=== PATIENT | male | born 1945 | race Caucasian/White ===

== ENCOUNTER 2023-05-10 09:09 | Inpatient (IN) | payer MEDICARE, OTHER ==
[~2023-05-10] VITALS: Ht 185.4 cm; Wt 100.2 kg
[~2023-05-10 09:09] MED LIST: ATOR40TA PO; HCTZ25T PO; METF500T PO
[2023-05-10] MEDS ORDERED: acetaminophen 325mg tablet PO STA (13:17)
[2023-05-10] MEDS ORDERED: piperacillin/tazo 3.375gm/50ml 50 ML IV ONE (13:20)
[2023-05-10] MEDS ORDERED: vancomycin/NS 1 GM ADD-VANTAGE 250 ML IV ONE (13:20)
[2023-05-10] MEDS ORDERED: normal saline 1000ml 1,000 ML IV SCH (13:25)
[2023-05-10 14:19] LABS: ALANINE AMINOTRANSFERASE 31 U/L (12-78); ALBUMIN 3.9 G/DL (3.4-5.0); ALKALINE PHOSPHATASE 81 IU/L (46-116); ANION GAP 9 (8-16); ASPARTATE AMINO TRANSFERASE 18 U/L (10-37); BILIRUBIN,TOTAL 0.4 MG/DL (0.1-1.0); BLOOD UREA NITROGEN 24 MG/DL (7-18); BUN/CREATININE RATIO 21.2 (10.0-20.0); C-REACTIVE PROTEIN 0.06 MG/DL (0.0-0.5); CALCIUM 9.7 MG/DL (8.5-10.1); CHLORIDE 101 MMOL/L (99-107); CREATININE 1.13 MG/DL (0.60-1.10); GLUCOSE 112 MG/DL (70-104); MAGNESIUM 2.1 MG/DL (1.5-2.4); POTASSIUM 4.2 MMOL/L (3.5-5.1); SODIUM 137 MMOL/L (135-145); TOTAL CARBON DIOXIDE 26.7 MMOL/L (24-32); TOTAL PROTEIN 7.7 G/DL (6.4-8.2); eCRCL 63 ML/MIN; eGFR 63 ML/MIN
[2023-05-10 14:23] LABS: BASOPHILS # (AUTO) 0.1 X10'3 (0-0.2); BASOPHILS % (AUTO) 0.9 % (0-1); EOSINOPHILS # (AUTO) 0.4 X10'3 (0-0.9); EOSINOPHILS % (AUTO) 6.6 % (0-6); HEMATOCRIT 44.3 % (42.0-52.0); HEMOGLOBIN 14.6 g/dl (14.0-17.9); LYMPHOCYTES # (AUTO) 1.1 X10'3 (1.1-4.8); LYMPHOCYTES % (AUTO) 19.4 % (21-51); MEAN CORPUSCULAR HEMOGLOBIN 34.3 PG (27.0-31.0); MEAN CORPUSCULAR VOLUME 103.9 FL (78-98); MONOCYTES # (AUTO) 0.7 X10'3 (0-0.9); MONOCYTES % (AUTO) 12.1 % (2-12); NEUTROPHILS # (AUTO) 3.5 X10'3 (1.8-7.7); PLATELET COUNT 154 X10'3 (140-440); RED BLOOD COUNT 4.27 X10'6 (4.70-6.10); RED CELL DISTRIBUTION WIDTH 13.3 % (11.5-14.5); WHITE BLOOD COUNT 5.7 X10'3 (4.5-11.0)
[2023-05-10] MEDS ORDERED: ATOR40TA72 PO (15:18)
[2023-05-10] MEDS ORDERED: AMLO-140 PO (15:18)
[2023-05-10] MEDS ORDERED: METF-438 PO (15:18)
[2023-05-10] MEDS ORDERED: COLE625T13 PO (15:27)
[2023-05-10] MEDS ORDERED: CHOL100046 PO (15:27)
[2023-05-10] MEDS ORDERED: CYAN1TAB65 PEG (15:27)
[2023-05-10] MEDS ORDERED: ASPI81TA52 PO (15:27)
[2023-05-10] MEDS ORDERED: magnesium Cl slow-release 64mg tablet PO PRN (16:10)
[2023-05-10] MEDS ORDERED: dextrose 50%-water 50ml dispensing syringe IV PRN ×2 (16:10)
[2023-05-10] MEDS ORDERED: potassium Cl 20 mEq SR tablet PO PRN ×2 (16:10)
[2023-05-10] MEDS ORDERED: diphenhydrAMINE 25mg capsule PO PRN (16:10)
[2023-05-10] MEDS ORDERED: magnesium 4gm in 100ml NS 100 ML IV PRN (16:10)
[2023-05-10] MEDS ORDERED: magnesium hydroxide 30ml (MOM) UD suspension PO PRN (16:10)
[2023-05-10] MEDS ORDERED: MESSAGE TO PHARMACY PO ONE (16:10)
[2023-05-10] MEDS ORDERED: HYDROcodone/acetaminophen 10/325mg tab PO PRN (16:10)
[2023-05-10] MEDS ORDERED: acetaminophen 650mg rectal suppository RC PRN (16:10)
[2023-05-10] MEDS ORDERED: acetaminophen 325mg tablet PO PRN (16:10)
[2023-05-10] MEDS ORDERED: HYDROcodone/acetaminophen 5mg/325mg tablet PO PRN (16:10)
[2023-05-10] MEDS ORDERED: ondansetron/PF 4mg/2ml inj IV PRN (16:10)
[2023-05-10] MEDS ORDERED: potassium Cl 40MEQ/1/2NS 520ml 520 ML IV PRN (16:10)
[2023-05-10] MEDS ORDERED: bisacodyl 10mg suppository rectal RC PRN (16:10)
[2023-05-10] MEDS ORDERED: DEXTROSE 15 GM of carb/4 tabs (each vial/BOTTLE has 4 tablets) PO PRN ×2 (16:10)
[2023-05-10] MEDS ORDERED: morphine 2 MG/ML inj. syringe IV PRN ×2 (16:10)
[2023-05-10] MEDS ORDERED: magnesium 2GM in 50ml NS 50 ML IV PRN (16:10)
[2023-05-10] MEDS ORDERED: insulin Lispro (HumaLOG) vial - multi-dose SQ SCH (16:10)
[2023-05-10] MEDS ORDERED: glucagon, human recombinant 1mg kit SUBCUT PRN (16:10)
[2023-05-10] MEDS ORDERED: mag hydrox/Alum hydrox/simeth 30ml oral suspension PO PRN (16:10)
[2023-05-10 16:26] LABS: BILIRUBIN,URINE NEGATIVE (Neg); CLARITY,URINE CLEAR (Clear); COLOR,URINE YELLOW (Yellow); GLUCOSE, URINE NEGATIVE (Neg); KETONES,URINE NEGATIVE (Neg); LEUKOCYTE ESTERASE ,URINE NEGATIVE (Neg); NITRITES, URINE NEGATIVE (Neg); OCCULT BLOOD,URINE NEGATIVE (Neg); PROTEIN,URINE NEGATIVE (Neg); UROBILINOGEN,URINE 0.2 E.U/dL (0.2-1.0)
[2023-05-10 16:30] LABS: UA COLLECTION TYPE VOIDED
[2023-05-10 17:13] LABS: HEMOGLOBIN A1C 6.3 % (4.5-6.2)
[2023-05-10] MEDS: normal saline 1000ml 1,000 ML IV SCH (18:00)
[2023-05-10 18:57] LABS: BASOPHILS % (AUTO) 0.8 % (0-1); EOSINOPHILS # (AUTO) 0.3 X10'3 (0-0.9); EOSINOPHILS % (AUTO) 6.6 % (0-6); HEMATOCRIT 38.9 % (42.0-52.0); HEMOGLOBIN 13.1 g/dl (14.0-17.9); LYMPHOCYTES % (AUTO) 20.9 % (21-51); MEAN CORPUSCULAR HEMOGLOBIN 34.6 PG (27.0-31.0); MEAN CORPUSCULAR HGB CONC 33.7 g/dL (33.0-36.5); MEAN CORPUSCULAR VOLUME 102.6 FL (78-98); MEAN PLATELET VOLUME 8.2 FL (7.4-10.4); MONOCYTES # (AUTO) 0.4 X10'3 (0-0.9); MONOCYTES % (AUTO) 9.6 % (2-12); NEUTROPHILS # (AUTO) 2.8 X10'3 (1.8-7.7); NEUTROPHILS % (AUTO) 62.1 % (42-75); PLATELET COUNT 138 X10'3 (140-440); RED BLOOD COUNT 3.79 X10'6 (4.70-6.10); WHITE BLOOD COUNT 4.6 X10'3 (4.5-11.0)
[2023-05-10 19:00] VITALS: BP 152/88; PULSE 78; RESP 16; TEMP 96.7; O2SAT 98
--- NOTE | 2023-05-10 19:07 | NUR ---
Patient in room ED 1. I have received report from NIK Ramos and had the opportunity to ask questions and assume patient care.
[2023-05-10 19:12] LABS: ALANINE AMINOTRANSFERASE 30 U/L (12-78); ALBUMIN 3.4 G/DL (3.4-5.0); ALKALINE PHOSPHATASE 70 IU/L (46-116); ANION GAP 9 (8-16); ASPARTATE AMINO TRANSFERASE 16 U/L (10-37); BILIRUBIN,TOTAL 0.5 MG/DL (0.1-1.0); BLOOD UREA NITROGEN 23 MG/DL (7-18); BUN/CREATININE RATIO 20.4 (10.0-20.0); CHLORIDE 103 MMOL/L (99-107); CREATININE 1.13 MG/DL (0.60-1.10); GLUCOSE 113 MG/DL (70-104); LIPASE 180 U/L (73-393); SODIUM 140 MMOL/L (135-145); TOTAL CARBON DIOXIDE 27.6 MMOL/L (24-32); TOTAL PROTEIN 6.7 G/DL (6.4-8.2); eCRCL 63 ML/MIN; eGFR 63 ML/MIN
[2023-05-10] MEDS: K and/or MAG REPLACEMENT MC SCH (19:40)
[2023-05-10] MEDS: docusate sod 100mg capsule PO SCH (19:47)
[2023-05-10] MEDS: lactobacillus rhamnosus 10,000 MMU CELLS/CAPSULE PO SCH (19:51)
[2023-05-10] MEDS: heparin, porcine 5000 units/ml vial SQ SCH (19:52)
[2023-05-10 20:00] VITALS: RESP 13; O2SAT 98
[2023-05-10] MEDS: colesevelam 625mg tablet PO SCH (20:51)
[2023-05-10] MEDS: insulin glargine (Lantus) pen - multi-dose SQ SCH (21:00)
[2023-05-10 22:00] VITALS: BP 126/66; PULSE 71; RESP 13; TEMP 97.9; O2SAT 98
[2023-05-10] MEDS: piperacillin/tazo 3.375gm/50ml 50 ML IV SCH (23:57)
[2023-05-11] MEDS: normal saline 1000ml 1,000 ML IV SCH ×3 (03:35→22:10)
[2023-05-11] MEDS: vancomycin/NS 1 GM ADD-VANTAGE 250 ML IV SCH ×2 (03:35→16:19)
--- NOTE | 2023-05-11 06:05 | NUR ---
Problems reprioritized. Patient report given, questions answered & plan of care reviewed with NIK Archer.
[2023-05-11 06:34] VITALS: BP 134/65; PULSE 71; RESP 14; TEMP 98.3; O2SAT 98
[2023-05-11] MEDS: lactobacillus rhamnosus 10,000 MMU CELLS/CAPSULE PO SCH ×2 (07:42→19:51)
[2023-05-11] MEDS: colesevelam 625mg tablet PO SCH ×2 (07:42→19:51)
[2023-05-11] MEDS: docusate sod 100mg capsule PO SCH ×2 (07:42→19:49)
[2023-05-11] MEDS: atorvastatin 20mg tablet PO SCH (07:43)
[2023-05-11] MEDS: amLODIPine 5mg tablet PO SCH (07:43)
[2023-05-11] MEDS: lisinopril 20mg tablet PO SCH (07:43)
[2023-05-11] MEDS: heparin, porcine 5000 units/ml vial SQ SCH ×2 (07:44→19:51)
[2023-05-11 08:00] VITALS: RESP 18; O2SAT 98
[2023-05-11] MEDS ORDERED: COBAMAMIDE PEG SCH (08:00)
[2023-05-11] MEDS ORDERED: CYANOCOBALAMIN PEG SCH (08:00)
[2023-05-11] MEDS: K and/or MAG REPLACEMENT MC SCH ×2 (08:00→19:46)
[2023-05-11 08:12] LABS: BASOPHILS % (AUTO) 0.6 % (0-1); EOSINOPHILS # (AUTO) 0.3 X10'3 (0-0.9); EOSINOPHILS % (AUTO) 5.9 % (0-6); HEMOGLOBIN 12.3 g/dl (14.0-17.9); LYMPHOCYTES # (AUTO) 0.7 X10'3 (1.1-4.8); LYMPHOCYTES % (AUTO) 15.1 % (21-51); MEAN CORPUSCULAR HEMOGLOBIN 34.6 PG (27.0-31.0); MEAN CORPUSCULAR HGB CONC 34.1 g/dL (33.0-36.5); MEAN CORPUSCULAR VOLUME 101.6 FL (78-98); MEAN PLATELET VOLUME 8.4 FL (7.4-10.4); MONOCYTES # (AUTO) 0.4 X10'3 (0-0.9); MONOCYTES % (AUTO) 8.8 % (2-12); NEUTROPHILS % (AUTO) 69.6 % (42-75); PLATELET COUNT 133 X10'3 (140-440); RED BLOOD COUNT 3.55 X10'6 (4.70-6.10); RED CELL DISTRIBUTION WIDTH 13.2 % (11.5-14.5); WHITE BLOOD COUNT 4.3 X10'3 (4.5-11.0)
[2023-05-11] MEDS: piperacillin/tazo 3.375gm/50ml 50 ML IV SCH ×3 (08:16→23:54)
[2023-05-11 08:38] LABS: ALANINE AMINOTRANSFERASE 24 U/L (12-78); ALBUMIN 2.9 G/DL (3.4-5.0); ALKALINE PHOSPHATASE 60 IU/L (46-116); ANION GAP 7 (8-16); ASPARTATE AMINO TRANSFERASE 15 U/L (10-37); BILIRUBIN,TOTAL 0.4 MG/DL (0.1-1.0); BLOOD UREA NITROGEN 24 MG/DL (7-18); BUN/CREATININE RATIO 20.3 (10.0-20.0); CALCIUM 8.4 MG/DL (8.5-10.1); CHLORIDE 106 MMOL/L (99-107); CHOL/HDL RATIO 3.3 (0.00-4.99); CHOLESTEROL 113 MG/DL (0-200); CREATININE 1.18 MG/DL (0.60-1.10); GLUCOSE 129 MG/DL (70-104); HDL CHOLESTEROL 34 MG/DL (35-60); LDL CHOLESTEROL 46 MG/DL (50-100); MAGNESIUM 1.8 MG/DL (1.5-2.4); PHOSPHORUS 2.9 MG/DL (2.3-4.5); POTASSIUM 4.1 MMOL/L (3.5-5.1); SODIUM 140 MMOL/L (135-145); TOTAL CARBON DIOXIDE 26.6 MMOL/L (24-32); TOTAL PROTEIN 5.9 G/DL (6.4-8.2); TRIGLYCERIDES 242 MG/DL (20-135); eCRCL 60 ML/MIN; eGFR 60 ML/MIN
[2023-05-11 10:17] VITALS: BP 134/61; PULSE 76; RESP 16; TEMP 97.1; O2SAT 96
[2023-05-11] MEDS ORDERED: GADOTERATE MEGLUMINE 7.5 MMOL/15 ML VIAL IV ONE (12:44)
--- NOTE | 2023-05-11 15:01 | NUR ---
Diabetes consult: Pt admit for sepsis, cellulitis, osteomyelitis and presents with an A1c of 6.3% per EMR. Due to A1c <7% and good glucose control, diabetic nutrition education is not warranted at this time. Pt is currently on a carbohydrate controlled diet with PO intake 100%x2 meal which met 88% of estimated kcal needs and 77% of estimated protein need. Pt seen at bedside ,states he does not want double protein at this time and states his current meal is filling. Recommend liberalizing to regular diet given A1c of 6.3%; discussed with RN. SUERO on 05/10 receiving routine bowel care per EMR. Will continue to monitor. Recommendation: 1.liberalize to regular diet given A1c of 6.3% and good blood glucose control 2.encourage double protein portion to better meet estimated protein needs 3.routine bowel care 4.weekly scaled wt Addendum: 05/11/23 at [address] Amended: Links added.
[2023-05-11 18:00] VITALS: BP 147/69; PULSE 75; RESP 16; TEMP 98.7; O2SAT 98
--- NOTE | 2023-05-11 18:35 | NUR ---
Patient in room [facility]TH[facility] 4017. I have received report from NIK Archer and had the opportunity to ask questions and assume patient care.
[2023-05-11 20:00] VITALS: RESP 16; O2SAT 99
[2023-05-11] MEDS: insulin glargine (Lantus) pen - multi-dose SQ SCH (21:00)
[2023-05-11 22:00] VITALS: BP 149/64; PULSE 77; RESP 16; TEMP 98.7; O2SAT 99
[2023-05-12] MEDS: normal saline 1000ml 1,000 ML IV SCH ×2 (02:56→14:29)
[2023-05-12] MEDS ORDERED: VANCOMYCIN LEVEL IV ONE (03:30)
[2023-05-12] MEDS: vancomycin/NS 1 GM ADD-VANTAGE 250 ML IV SCH (03:52)
[2023-05-12 04:00] LABS: BASOPHILS % (AUTO) 0.8 % (0-1); EOSINOPHILS # (AUTO) 0.3 X10'3 (0-0.9); EOSINOPHILS % (AUTO) 5.8 % (0-6); HEMATOCRIT 35.7 % (42.0-52.0); LYMPHOCYTES # (AUTO) 0.9 X10'3 (1.1-4.8); MEAN CORPUSCULAR HEMOGLOBIN 34.2 PG (27.0-31.0); MEAN CORPUSCULAR HGB CONC 33.7 g/dL (33.0-36.5); MEAN CORPUSCULAR VOLUME 101.6 FL (78-98); MEAN PLATELET VOLUME 8.1 FL (7.4-10.4); MONOCYTES # (AUTO) 0.6 X10'3 (0-0.9); MONOCYTES % (AUTO) 11.7 % (2-12); NEUTROPHILS # (AUTO) 3.5 X10'3 (1.8-7.7); NEUTROPHILS % (AUTO) 65.7 % (42-75); PLATELET COUNT 127 X10'3 (140-440); RED BLOOD COUNT 3.51 X10'6 (4.70-6.10); RED CELL DISTRIBUTION WIDTH 13.1 % (11.5-14.5); WHITE BLOOD COUNT 5.4 X10'3 (4.5-11.0)
[2023-05-12] MEDS: acetaminophen 325mg tablet PO PRN ×2 (04:02→09:32)
[2023-05-12 04:35] LABS: ALANINE AMINOTRANSFERASE 24 U/L (12-78); ALBUMIN 2.9 G/DL (3.4-5.0); ALBUMIN/GLOBULIN RATIO 0.9 (1.1-1.5); ALKALINE PHOSPHATASE 54 IU/L (46-116); ANION GAP 9 (8-16); ASPARTATE AMINO TRANSFERASE 11 U/L (10-37); BILIRUBIN,TOTAL 0.3 MG/DL (0.1-1.0); CALCIUM 8.7 MG/DL (8.5-10.1); CHLORIDE 109 MMOL/L (99-107); CREATININE 1.24 MG/DL (0.60-1.10); GLUCOSE 149 MG/DL (70-104); PHOSPHORUS 2.9 MG/DL (2.3-4.5); POTASSIUM 4.3 MMOL/L (3.5-5.1); SODIUM 141 MMOL/L (135-145); TOTAL CARBON DIOXIDE 23.5 MMOL/L (24-32); VANCOMYCIN,TROUGH 12.7 UG/ML (6.0-14.0); eCRCL 57 ML/MIN; eGFR 57 ML/MIN
[2023-05-12 05:00] LABS: BLOOD UREA NITROGEN 25 MG/DL (7-18); BUN/CREATININE RATIO 20.2 (10.0-20.0)
--- NOTE | 2023-05-12 06:34 | NUR ---
Problems reprioritized. Patient report given, questions answered & plan of care reviewed with NIK Fernandez.
--- NOTE | 2023-05-12 06:35 | NUR ---
Problems reprioritized. Patient report given, questions answered & plan of care reviewed with [].
--- NOTE | 2023-05-12 06:36 | NUR ---
Patient in room [facility] 4017. I have received report from Madison ZARAGOZA and had the opportunity to ask questions and assume patient care.
[2023-05-12 06:47] VITALS: BP 116/63; PULSE 74; RESP 16; TEMP 98.1; O2SAT 99
[2023-05-12 08:00] VITALS: RESP 16
[2023-05-12] MEDS: K and/or MAG REPLACEMENT MC SCH ×2 (08:00→20:00)
[2023-05-12] MEDS: docusate sod 100mg capsule PO SCH ×2 (08:00→20:00)
[2023-05-12] MEDS: atorvastatin 20mg tablet PO SCH (08:00)
[2023-05-12] MEDS: colesevelam 625mg tablet PO SCH ×2 (08:01→20:21)
[2023-05-12] MEDS: lactobacillus rhamnosus 10,000 MMU CELLS/CAPSULE PO SCH ×2 (08:01→20:21)
[2023-05-12] MEDS: amLODIPine 5mg tablet PO SCH (08:03)
[2023-05-12] MEDS: piperacillin/tazo 3.375gm/50ml 50 ML IV SCH ×2 (08:03→17:19)
[2023-05-12] MEDS: lisinopril 20mg tablet PO SCH (08:03)
[2023-05-12] MEDS: heparin, porcine 5000 units/ml vial SQ SCH ×2 (08:08→20:21)
[2023-05-12 10:11] VITALS: BP 145/64; PULSE 69; RESP 16; TEMP 98.1; O2SAT 98
[2023-05-12] MEDS: VANCOmycin 1250MG/NS 250ml Bag 250 ML IV SCH (15:05)
[2023-05-12 18:00] VITALS: BP 151/65; PULSE 72; RESP 16; TEMP 98.7; O2SAT 98
--- NOTE | 2023-05-12 18:26 | NUR ---
Problems reprioritized. Patient report given, questions answered & plan of care reviewed with Colette ZARAGOZA.
[2023-05-12 20:00] VITALS: RESP 16; O2SAT 98
[2023-05-12] MEDS: insulin glargine (Lantus) pen - multi-dose SQ SCH (21:00)
[2023-05-12 22:00] VITALS: BP 145/67; PULSE 69; RESP 16; TEMP 98.4; O2SAT 98
[2023-05-13] MEDS: piperacillin/tazo 3.375gm/50ml 50 ML IV SCH ×3 (00:13→17:20)
[2023-05-13] MEDS: VANCOmycin 1250MG/NS 250ml Bag 250 ML IV SCH ×2 (04:23→16:09)
[2023-05-13] MEDS: normal saline 1000ml 1,000 ML IV SCH ×2 (04:28→14:10)
[2023-05-13 06:07] LABS: ALANINE AMINOTRANSFERASE 22 U/L (12-78); ALBUMIN 2.8 G/DL (3.4-5.0); ALBUMIN/GLOBULIN RATIO 0.9 (1.1-1.5); ALKALINE PHOSPHATASE 51 IU/L (46-116); ANION GAP 6 (8-16); ASPARTATE AMINO TRANSFERASE 13 U/L (10-37); BILIRUBIN,TOTAL 0.3 MG/DL (0.1-1.0); BLOOD UREA NITROGEN 24 MG/DL (7-18); BUN/CREATININE RATIO 18.8 (10.0-20.0); CALCIUM 8.3 MG/DL (8.5-10.1); CHLORIDE 108 MMOL/L (99-107); CREATININE 1.28 MG/DL (0.60-1.10); GLUCOSE 146 MG/DL (70-104); MAGNESIUM 2.1 MG/DL (1.5-2.4); PHOSPHORUS 2.9 MG/DL (2.3-4.5); SODIUM 139 MMOL/L (135-145); TOTAL CARBON DIOXIDE 25.1 MMOL/L (24-32); TOTAL PROTEIN 5.9 G/DL (6.4-8.2); eCRCL 55 ML/MIN; eGFR 55 ML/MIN
--- NOTE | 2023-05-13 06:22 | NUR ---
Problems reprioritized. Patient report given, questions answered & plan of care reviewed with COLBY RN.
[2023-05-13 06:26] LABS: BASOPHILS % (AUTO) 0.8 % (0-1); EOSINOPHILS # (AUTO) 0.3 X10'3 (0-0.9); EOSINOPHILS % (AUTO) 6.3 % (0-6); HEMATOCRIT 35.6 % (42.0-52.0); HEMOGLOBIN 12.1 g/dl (14.0-17.9); LYMPHOCYTES # (AUTO) 0.9 X10'3 (1.1-4.8); LYMPHOCYTES % (AUTO) 17.9 % (21-51); MEAN CORPUSCULAR HEMOGLOBIN 34.6 PG (27.0-31.0); MEAN PLATELET VOLUME 8.6 FL (7.4-10.4); MONOCYTES # (AUTO) 0.6 X10'3 (0-0.9); MONOCYTES % (AUTO) 11.2 % (2-12); NEUTROPHILS # (AUTO) 3.2 X10'3 (1.8-7.7); NEUTROPHILS % (AUTO) 63.8 % (42-75); PLATELET COUNT 119 X10'3 (140-440); RED BLOOD COUNT 3.49 X10'6 (4.70-6.10)
[2023-05-13 06:49] VITALS: BP 119/65; PULSE 64; RESP 14; TEMP 98; O2SAT 98
--- NOTE | 2023-05-13 07:15 | NUR ---
Patient in room [facility] 4017. I have received report from Colette ZARAGOZA and had the opportunity to ask questions and assume patient care.
[2023-05-13 08:00] VITALS: RESP 16
[2023-05-13] MEDS: docusate sod 100mg capsule PO SCH ×2 (08:00→20:29)
[2023-05-13] MEDS: K and/or MAG REPLACEMENT MC SCH ×2 (08:00→20:00)
[2023-05-13] MEDS: lactobacillus rhamnosus 10,000 MMU CELLS/CAPSULE PO SCH ×2 (09:51→20:29)
[2023-05-13] MEDS: atorvastatin 20mg tablet PO SCH (09:52)
[2023-05-13] MEDS: amLODIPine 5mg tablet PO SCH (09:52)
[2023-05-13] MEDS: colesevelam 625mg tablet PO SCH ×2 (09:52→20:29)
[2023-05-13] MEDS: lisinopril 20mg tablet PO SCH (09:54)
[2023-05-13 10:00] VITALS: BP 141/64; PULSE 69; RESP 16; TEMP 97.8; O2SAT 99
[2023-05-13] MEDS: heparin, porcine 5000 units/ml vial SQ SCH ×2 (10:07→20:32)
--- NOTE | 2023-05-13 13:13 | NUR ---
Per verbal d/w RN pt not happy with his diet being changed to regular as he prefers CHO controlled diet and pt also with additional food preferences. Patient now back on a CHO controlled diet. Pt seen at bedside, food preferences were obtained and d/w dietary, see below. RD informed pt that CHO controlled diet is very restrictive to estimated nutrient needs will not be met on a CHO controlled diet. Pt states he wants to be on a CHO controlled diet to help assist with maintaining good BG management. Patient's preferences will be honored. Pt provided with RD contact information and encouraged to reach out should he have any additional preferences. Will continue to follow. Recommendation: 1. Continue CHO controlled diet per pt preference 2. [place] patient's food preferences: hard boiled egg x 2, cottage cheese, and fresh fruit WB; double protein BIDLD; fresh fruit TID; No: milk/milk substitute to drink, yogurt, hot/cold cereal, pasta, waffles, serbian toast, pancakes, white rice, white bread/rolls, canned fruit, sugar, or sugar substitute 3. Routine bowel care 4. Weekly scaled weights Addendum: 05/13/23 at [address] Amended: Links added.
--- NOTE | 2023-05-13 14:18 | NUR ---
Message: [facility] re: [id number] Patient Per Dr. Acosta patient needs wound care for toe. No surgery at this time, If toe dies amputation later. Thanks Jim
--- NOTE | 2023-05-13 18:38 | NUR ---
Patient in room [facility]TH[facility] 4017. I have received report from COLBY ZARAGOZA and had the opportunity to ask questions and assume patient care.
--- NOTE | 2023-05-13 18:45 | NUR ---
Problems reprioritized. Patient report given, questions answered & plan of care reviewed with Colette ZARAGOZA.
[2023-05-13 20:00] VITALS: RESP 15; O2SAT 96
[2023-05-13] MEDS: insulin glargine (Lantus) pen - multi-dose SQ SCH (20:40)
[2023-05-13 22:00] VITALS: BP 134/73; PULSE 67; RESP 16; TEMP 97.9; O2SAT 99
[2023-05-14] MEDS: piperacillin/tazo 3.375gm/50ml 50 ML IV SCH ×2 (00:19→08:27)
[2023-05-14] MEDS ORDERED: VANCOMYCIN LEVEL IV ONE (03:30)
[2023-05-14 03:56] LABS: BASOPHILS % (AUTO) 0.6 % (0-1); EOSINOPHILS # (AUTO) 0.3 X10'3 (0-0.9); EOSINOPHILS % (AUTO) 6.4 % (0-6); HEMATOCRIT 35.9 % (42.0-52.0); HEMOGLOBIN 12.1 g/dl (14.0-17.9); LYMPHOCYTES # (AUTO) 0.9 X10'3 (1.1-4.8); LYMPHOCYTES % (AUTO) 17.7 % (21-51); MEAN CORPUSCULAR HEMOGLOBIN 34.3 PG (27.0-31.0); MEAN CORPUSCULAR HGB CONC 33.6 g/dL (33.0-36.5); MEAN CORPUSCULAR VOLUME 101.9 FL (78-98); MEAN PLATELET VOLUME 7.7 FL (7.4-10.4); MONOCYTES # (AUTO) 0.5 X10'3 (0-0.9); NEUTROPHILS # (AUTO) 3.1 X10'3 (1.8-7.7); NEUTROPHILS % (AUTO) 64.3 % (42-75); PLATELET COUNT 123 X10'3 (140-440); RED BLOOD COUNT 3.52 X10'6 (4.70-6.10); RED CELL DISTRIBUTION WIDTH 13.3 % (11.5-14.5); WHITE BLOOD COUNT 4.8 X10'3 (4.5-11.0)
[2023-05-14 04:06] LABS: ALANINE AMINOTRANSFERASE 40 U/L (12-78); ALBUMIN 2.9 G/DL (3.4-5.0); ALBUMIN/GLOBULIN RATIO 0.9 (1.1-1.5); ALKALINE PHOSPHATASE 53 IU/L (46-116); ANION GAP 7 (8-16); ASPARTATE AMINO TRANSFERASE 25 U/L (10-37); BILIRUBIN,TOTAL 0.4 MG/DL (0.1-1.0); BLOOD UREA NITROGEN 26 MG/DL (7-18); BUN/CREATININE RATIO 20.6 (10.0-20.0); CALCIUM 8.3 MG/DL (8.5-10.1); CHLORIDE 108 MMOL/L (99-107); CREATININE 1.26 MG/DL (0.60-1.10); GLUCOSE 148 MG/DL (70-104); MAGNESIUM 2.1 MG/DL (1.5-2.4); PHOSPHORUS 3.3 MG/DL (2.3-4.5); POTASSIUM 4.2 MMOL/L (3.5-5.1); SODIUM 138 MMOL/L (135-145); TOTAL CARBON DIOXIDE 23.1 MMOL/L (24-32); TOTAL PROTEIN 6.2 G/DL (6.4-8.2); eCRCL 56 ML/MIN; eGFR 56 ML/MIN
[2023-05-14 04:08] LABS: VANCOMYCIN,TROUGH 20.6 UG/ML (6.0-14.0)
[2023-05-14] MEDS: VANCOmycin 1250MG/NS 250ml Bag 250 ML IV SCH (04:13)
--- NOTE | 2023-05-14 06:39 | NUR ---
Patient in room [facility]TH[facility] 4017. I have received report from HUE ZARAGOZA and had the opportunity to ask questions and assume patient care.
--- NOTE | 2023-05-14 06:50 | NUR ---
REPORT TO RENNY ZARAGOZA
[2023-05-14] MEDS: K and/or MAG REPLACEMENT MC SCH (08:00)
[2023-05-14 08:10] VITALS: BP 138/66; PULSE 67; RESP 16; TEMP 98.7; O2SAT 98
[2023-05-14] MEDS: docusate sod 100mg capsule PO SCH (08:28)
[2023-05-14] MEDS: heparin, porcine 5000 units/ml vial SQ SCH (08:28)
[2023-05-14] MEDS: amLODIPine 5mg tablet PO SCH (08:28)
[2023-05-14] MEDS: lactobacillus rhamnosus 10,000 MMU CELLS/CAPSULE PO SCH (08:28)
[2023-05-14] MEDS: atorvastatin 20mg tablet PO SCH (08:29)
[2023-05-14] MEDS: lisinopril 20mg tablet PO SCH (08:29)
[2023-05-14] MEDS: colesevelam 625mg tablet PO SCH (08:29)
[2023-05-14 10:28] VITALS: RESP 16; O2SAT 98
[2023-05-14 11:49] VITALS: BP 132/66; PULSE 68; RESP 16; TEMP 98.4; O2SAT 98
--- NOTE | 2023-05-14 11:59 | NUR ---
DIABETIC FOOT CARE EDUCATION PROVIDED BY WOUND CARE * Wash your feet daily with lukewarm water and soap. * Dry your feet well, especially between the toes. * Keep the skin moisturized with lotion, but do not apply it between the toes. * Check your feet for blisters, cuts or sores. * Use an emery board to shape your toenails even with the ends of your toes. * Change daily into clean, soft socks or stockings, not too big or too small. * Keep your feet warm and dry. * Preferably wear special padded socks and shoes that fit well. * Never walk barefoot indoors or outdoors. * Examine your shoes everyday for cracks, len, nails or anything that could hurt your feet. * Tell your doctor if you find any of these problems or have any concerns after examining your feet. Addendum: 05/14/23 at 1200 by Colette Rodriguez LVN Amended: Links added.
[2023-05-14] MEDS ORDERED: LINE600T11 CORPAK (14:28)
[2023-05-14] MEDS ORDERED: vancomycin/NS 1 GM ADD-VANTAGE 250 ML IV SCH (16:00)
--- NOTE | 2023-05-14 16:07 | NUR ---
PT. ALERT AND STABLE UPON DISCHARGE. PT. IV CANNULA WHOLE AND INTACT UPON REMOVAL. PT. SAFELY ESCORTED INTO PRIVATE VEHICLE WITH SPOUSE. PT. EDUCATED ON NEW MEDS, AND TO FOLLOW UP WITH PRIMARY CARE PROVIDER. PT. LEFT WITH ALL BELONGINGS.
[2023-05-16] MEDS ORDERED: VANCOMYCIN LEVEL IV ONE (03:30)
== END 2023-05-14 15:55 | disposition home or self-care (01) | DRG 603 ==
LOC: ER 09:09 → ED HOLD 16:14 → EDBEDREQ 18:42 → ORTHO 4S 19:21
PROVIDERS: ADMIT Family Medicine; ATTEND Family Medicine
DX: L03.032 Cellulitis of left toe (principal); N17.9 Acute kidney failure, unspecified; F10.10 Alcohol abuse, uncomplicated; E11.40 Type 2 diabetes mellitus with diabetic neuropathy, unspecified; M77.8 Other enthesopathies, not elsewhere classified; E11.610 Type 2 diabetes mellitus with diabetic neuropathic arthropathy; E78.5 Hyperlipidemia, unspecified; I10 Essential (primary) hypertension; Z80.42 Family history of malignant neoplasm of prostate; Z87.891 Personal history of nicotine dependence; Z79.899 Other long term (current) drug therapy
CPT/HCPCS: 36415; 73630; 73720; 80053; 80061; 80202; 81003; 82948; 83036; 83605; 83690; 83735; 84100; 84145; 85025; 85651; 86140; 87040; 87081; 93005; 96365; 96367; 99285; A9575; G0378; J1644; J1815; J2543; J3370; J7030

== ENCOUNTER 2024-09-16 13:54 | Emergency (ER) | payer MEDICARE, OTHER ==
[~2024-09-16] VITALS: Ht 185.4 cm; Wt 86.3 kg
[~2024-09-16 13:54] MED LIST changes: +AMLO-140 PO; +ASPI81TA52 PO; -ATOR40TA PO; +ATOR40TA72 PO; +CHOL100046 PO; +COLE625T13 PO; +CYAN1TAB65 PEG; -HCTZ25T PO; +METF-438 PO; -METF500T PO
[2024-09-16 13:57] VITALS: BP 131/69; PULSE 86; RESP 16; O2SAT 99
[2024-09-16 14:23] LABS: BASOPHILS % (AUTO) 0.4 % (0-1); EOSINOPHILS # (AUTO) 0.2 X10'3 (0-0.9); HEMATOCRIT 39.1 % (42.0-52.0); HEMOGLOBIN 13.3 g/dl (14.0-17.9); LYMPHOCYTES # (AUTO) 0.8 X10'3 (1.1-4.8); LYMPHOCYTES % (AUTO) 10.6 % (21-51); MEAN CORPUSCULAR HEMOGLOBIN 35.1 PG (27.0-31.0); MEAN CORPUSCULAR VOLUME 103.1 FL (78-98); MEAN PLATELET VOLUME 7.9 FL (7.4-10.4); MONOCYTES # (AUTO) 1.3 X10'3 (0-0.9); MONOCYTES % (AUTO) 16.5 % (2-12); NEUTROPHILS # (AUTO) 5.5 X10'3 (1.8-7.7); NEUTROPHILS % (AUTO) 69.5 % (42-75); PLATELET COUNT 167 X10'3 (140-440); RED BLOOD COUNT 3.79 X10'6 (4.70-6.10); RED CELL DISTRIBUTION WIDTH 12.8 % (11.5-14.5)
[2024-09-16 14:55] LABS: ALANINE AMINOTRANSFERASE 18 U/L (12-78); ALBUMIN 3.3 G/DL (3.4-5.0); ALBUMIN/GLOBULIN RATIO 0.7 (1.1-1.5); ALKALINE PHOSPHATASE 80 IU/L (46-116); ANION GAP 11 (8-16); ASPARTATE AMINO TRANSFERASE 9 U/L (10-37); BILIRUBIN,TOTAL 0.6 MG/DL (0.1-1.0); BLOOD UREA NITROGEN 33 MG/DL (7-18); CALCIUM 9.5 MG/DL (8.5-10.1); CHLORIDE 101 MMOL/L (99-107); CREATININE 1.65 MG/DL (0.60-1.10); GLUCOSE 156 MG/DL (70-104); POTASSIUM 3.9 MMOL/L (3.5-5.1); PRO BRAIN NATRIURETIC PEPTIDE 265 PG/ML (0-450); SODIUM 135 MMOL/L (135-145); TOTAL CARBON DIOXIDE 23.2 MMOL/L (24-32); eCRCL 42 ML/MIN; eGFR 41 ML/MIN
[2024-09-16] MEDS ORDERED: LACT1CAP60 PO (15:06)
[2024-09-16] MEDS ORDERED: AMOX-115 PO (15:06)
[2024-09-16] MEDS ORDERED: PRED10TA23 PO (15:06)
[2024-09-16 15:08] LABS: TOTAL CELLS COUNTED 100
[2024-09-16 15:09] LABS: PLATELET ESTIMATE NORMAL
[2024-09-16] MEDS: amox tr/potassium clavulanate 500mg/125mg TAB PO ONE (15:21)
[2024-09-16 15:25] VITALS: TEMP 98.6
== END 2024-09-16 15:27 | disposition home or self-care (01) ==
LOC: ER 13:55
DX: J22 Unspecified acute lower respiratory infection (principal); E11.9 Type 2 diabetes mellitus without complications; I10 Essential (primary) hypertension; Z79.899 Other long term (current) drug therapy; Z79.82 Long term (current) use of aspirin; Z79.84 Long term (current) use of oral hypoglycemic drugs
CPT/HCPCS: 71046; 80053; 83605; 83880; 85007; 85025; 87040; 99284